=== PATIENT | female | born 1970 | race Caucasian/White ===

== ENCOUNTER 2018-01-21 14:49 | Inpatient (IN) | payer OTHER ==
[2018-01-21] MEDS ORDERED: MAALOX 30 ML SUSP *UDC PO (16:30)
[2018-01-21] MEDS ORDERED: ACETAMINOPHEN TAB 650MG DOSE (2X325MG) PO (16:30)
[2018-01-21] MEDS ORDERED: MOM 30ML SUSPENSION UDC PO (16:30)
[2018-01-21] MEDS: ZIPRASIDONE 20MG CAPSULE (GEODON) PO (21:53)
[2018-01-21] MEDS: traZODone 50 MG TAB PO (21:54)
[2018-01-22] MEDS: ZIPRASIDONE 20MG CAPSULE (GEODON) PO (09:00)
[2018-01-22] MEDS: hydrOXYzine 50 MG TAB PO (18:48)
[2018-01-22] MEDS: traZODone 50 MG TAB PO (20:30)
[2018-01-22] MEDS: PALIPERIDONE 3 MG ER TAB (INVEGA) PO (20:30)
[2018-01-23] MEDS: PALIPERIDONE 3 MG ER TAB (INVEGA) PO (08:35)
[2018-01-23] MEDS: PALIPERIDONE 6 MG ER TAB (INVEGA) PO (20:24)
[2018-01-23] MEDS: traZODone 50 MG TAB PO (20:24)
[2018-01-24] MEDS: PALIPERIDONE 6 MG ER TAB (INVEGA) PO ×2 (08:48→20:09)
[2018-01-24] MEDS: ESCITALOPRAM OXALATE 10 MG TAB (LEXAPRO) PO (12:26)
[2018-01-24] MEDS: PALIPERIDONE PALMITATE 234 MG/1.5 ML INJ (INVEGA SUSTENNA)(J2426) IM (14:38)
[2018-01-24] MEDS: QUEtiapine FUMARATE 50 MG TAB PO (20:09)
[2018-01-25] MEDS: ESCITALOPRAM OXALATE 10 MG TAB (LEXAPRO) PO (08:24)
[2018-01-25] MEDS: PALIPERIDONE 6 MG ER TAB (INVEGA) PO ×2 (08:24→20:39)
[2018-01-25] MEDS: QUEtiapine FUMARATE 50 MG TAB PO (20:39)
[2018-01-26] MEDS: PALIPERIDONE 6 MG ER TAB (INVEGA) PO ×2 (08:36→21:04)
[2018-01-26] MEDS: ESCITALOPRAM OXALATE 10 MG TAB (LEXAPRO) PO (08:36)
[2018-01-26] MEDS: QUEtiapine FUMARATE 50 MG TAB PO (21:04)
[2018-01-27] MEDS: ESCITALOPRAM OXALATE 10 MG TAB (LEXAPRO) PO (09:15)
[2018-01-27] MEDS: PALIPERIDONE 6 MG ER TAB (INVEGA) PO ×2 (09:15→21:59)
[2018-01-27] MEDS: PALIPERIDONE PALMITATE 156 MG/1ML INJ(INVEGA SUSTENNA)(J2426) IM (12:25)
[2018-01-27] MEDS: QUEtiapine FUMARATE 50 MG TAB PO (21:59)
[2018-01-28] MEDS: ESCITALOPRAM OXALATE 10 MG TAB (LEXAPRO) PO (08:22)
[2018-01-28] MEDS: PALIPERIDONE 6 MG ER TAB (INVEGA) PO ×2 (08:22→21:43)
[2018-01-28] MEDS: QUEtiapine FUMARATE 50 MG TAB PO (21:44)
[2018-01-29] MEDS: PALIPERIDONE 6 MG ER TAB (INVEGA) PO ×2 (08:38→22:08)
[2018-01-29] MEDS: ESCITALOPRAM OXALATE 10 MG TAB (LEXAPRO) PO (08:38)
[2018-01-29] MEDS: QUEtiapine FUMARATE 50 MG TAB PO (22:08)
[2018-01-30] MEDS: ESCITALOPRAM OXALATE 10 MG TAB (LEXAPRO) PO (08:53)
[2018-01-30] MEDS: PALIPERIDONE 6 MG ER TAB (INVEGA) PO ×2 (08:54→20:20)
[2018-01-30] MEDS: QUEtiapine FUMARATE 50 MG TAB PO (20:20)
[2018-01-31] MEDS: PALIPERIDONE 6 MG ER TAB (INVEGA) PO (08:37)
[2018-01-31] MEDS: ESCITALOPRAM OXALATE 10 MG TAB (LEXAPRO) PO (08:37)
== END 2018-01-31 13:30 | disposition home or self-care (01) | DRG 885 ==
LOC: M PSY 01-30 16:49 → M ED 14:49 → M ED INP 16:25 → M PSY 18:32
DX: F20.0 Paranoid schizophrenia (principal); F41.9 Anxiety disorder, unspecified; F63.0 Pathological gambling; Z91.5 Personal history of self-harm; Z98.82 Breast implant status; Z79.899 Other long term (current) drug therapy

== ENCOUNTER → 2018-03-08 | Outpatient (CLI) | payer OTHER, MEDICAID | LOC: M OUTALCOH 07:48 | DX: Z13.9 Encounter for screening, unspecified (principal); F10.20 Alcohol dependence, uncomplicated ==

== ENCOUNTER 2018-04-15 16:00 | Outpatient (RCR) | payer OTHER, MEDICAID | END 2018-05-01 | LOC: M OUTALCOH 16:00 | DX: F10.20 Alcohol dependence, uncomplicated (principal); F63.0 Pathological gambling ==

== ENCOUNTER 2018-05-02 14:28 | Outpatient (RCR) | payer OTHER, MEDICAID | END 2018-06-01 | LOC: M OUTALCOH 14:28 | DX: F10.20 Alcohol dependence, uncomplicated (principal); F63.0 Pathological gambling ==

== ENCOUNTER 2018-06-03 15:25 | Outpatient (RCR) | payer OTHER, MEDICAID | END 2018-07-01 | LOC: M OUTALCOH 15:25 | DX: F10.20 Alcohol dependence, uncomplicated (principal); F63.0 Pathological gambling ==

== ENCOUNTER → 2018-08-01 | Outpatient (RCR) | payer OTHER, MEDICAID ==
[~2018-08-01] MED LIST: ESCI10TA2 PO; GEOD60CA PO; HYDRO50TAB PO; INVE156I IM; MELA3TAB PO; MELA3TAB49 PO; PALI1TAB3 PO; QUET5TAB PO
== END ==
LOC: M OUTALCOH 07-11 13:17
PROVIDERS: ATTEND Psychiatry & Neurology Psychiatry
DX: F10.20 Alcohol dependence, uncomplicated (principal); F63.0 Pathological gambling